=== PATIENT | female | born 1940 | race Two or more races ===

== ENCOUNTER 2023-02-25 15:21 | Emergency (ER) | payer OTHER ==
[~2023-02-25] VITALS: Ht 157.5 cm; Wt 54.4 kg
[2023-02-25] MEDS ORDERED: VERAPAMIL ER240 MG (17:12)
[2023-02-25] MEDS ORDERED: LOSARTAN POTAS100 MG (17:12)
[2023-02-25] MEDS ORDERED: ALENDRONATE SOD70 MG (17:13)
[2023-02-25] MEDS ORDERED: ANASTROZOLE1 MG (17:15)
== END 2023-02-25 21:14 | disposition home or self-care (01) ==
LOC: ER 15:22
DX: S51.801A Unspecified open wound of right forearm, initial encounter (principal); W45.8XXA Other foreign body or object entering through skin, initial encounter; Y93.89 Activity, other specified; Y92.89 Other specified places as the place of occurrence of the external cause; Y99.8 Other external cause status; I10 Essential (primary) hypertension

== ENCOUNTER 2023-03-04 10:20 | Emergency (ER) | payer OTHER ==
[~2023-03-04] VITALS: Ht 157.5 cm; Wt 54.4 kg
[~2023-03-04 10:20] MED LIST: ALENDRONATE SOD70 MG; ANASTROZOLE1 MG; LOSARTAN POTAS100 MG; VERAPAMIL ER240 MG
== END 2023-03-04 12:45 | disposition home or self-care (01) ==
LOC: ER 10:22
DX: Z48.02 Encounter for removal of sutures (principal)